=== PATIENT | male | born 1940 | race Caucasian/White ===

== ENCOUNTER → 2016-06-11 | Outpatient (CLI) | payer MEDICARE, OTHER ==
[~2016-06-11] MED LIST: AFRIN PUMPMIST15 ML NS; ALBUTEROL2.5 MG/3 M IH; ALEVE220 MG PO; ARTIFICIAL TEARS OP; ASPIRIN E.C. 8181 MG PO; ATROVENT I0.2 MG/1 M IH; BENADRYL25 MG PO; BISACODYL RC; CARDI-OMEGA1000 MG PO; CEPACOL SORE TH MM; CEPHALEXIN250 M1 PO; CEPHALEXIN500 M1 PO; CLARITIN LIQUI-10 MG PO; CLINDAMYCIN300 MG PO; COLACE 100100 MG/CAP PO; COUMADIN 22.5 MG/TAB PO; COUMADIN 5MG5 MG/TAB PO; COUMADIN5 M1 IV; COUMADIN5 MG PO; COUMADIN7.5 MG PO; DELSYM30 MG/5 ML PO; DHA PO; DIGESTIVE ENZYM1 TAB PO; DIGOX0.125 MG PO; DOCUSATE SODIU100 M2 PO; DULCOLAX S10 MG/SUPP REC; ENEMA 135 ML135 M1 RC; FLOMAX0.4 MG PO; FLONASE NASAL S16 GM NS; FUROSEMIDE PO; GENTLELAX510 GM PO; HYDROCODONE/APAP PO; INDERAL LA 60MG60 M1 PO; IPRATROPIUM BROM3 M1 IH; Inderal LA PO; K-DUR 10 MEQ T10 MEQ PO; LASIX 40MG TABL40 MG PO; LORAZEPAM PO; LORTAB ELIX0.5 MG/ML PO; METAMUCIL3.4 GM/Do1 PO; MILK OF MAG30 ML/CUP PO; MIRALAX PA17 GM/Dose PO; MULTI VITAMINS1 TAB PO; MYLICON PO; NAMENDA5 MG PO; NORITATE1% TP; PENLAC; PRILOSEC 20MG20 MG PO; PROBIOTIC FORMU1 CAP PO; PROBIOTIC1 EAC1 PO; PULMICORT0.5 MG/2 M IH; Patient's Own Medication PO; SELSUN BLUE325 ML TOP; SENOKOT-S TAB1 UDTAB PO; SENOKOT8.6 MG; SENOKOT8.6 MG PO; SINEMET 25-1001 TAB PO; SKELAXIN400 MG PO; ST. JOSEPH81 M2 PO; TESSALON P100 MG/CAP PO; TESSALON PERLE100 M1 PO; TESSALON PERLE200 MG PO; THERAGRAN TAB1 UDTAB PO; TOPROL XL 50MG50 MG PO; TOPROL XL25 MG PO; TRIAMCINOLONE A15 GM TP; TYLENOL 325MG325 MG PO; TYLENOL 500MG500 MG PO; VIBRAMYCIN100 MG PO; VICKS VAPORUB 41 OIN TP; VITAMIN C PURE500 MG PO; VITAMIN D 1001000 IU PO; VITAMIN D NATU400 IU PO; VITAMIN D31000 I1 PO; WARFARIN SOD5 MG PO; ZANTAC 7575 MG PO; ZINC50 M1 PO; ZITHROMAX500 M2 PO; ZOFRAN8 MG PO; ZYRTEC10 MG PO; [UNRECOGNIZED DRUG - OTHER] PO
== END ==
LOC: RAD 15:02
DX: R05 Cough (principal)

== ENCOUNTER → 2016-06-13 | Outpatient (CLI) | payer MEDICARE, OTHER | LOC: LAB 07:30 | DX: Z51.81 Encounter for therapeutic drug level monitoring (principal); Z79.01 Long term (current) use of anticoagulants; I63.40 Cerebral infarction due to embolism of unspecified cerebral artery ==

== ENCOUNTER → 2016-06-14 | Outpatient (CLI) | payer MEDICARE, OTHER | LOC: LAB 13:30 | DX: I51.7 Cardiomegaly (principal) ==

== ENCOUNTER → 2016-06-17 | Outpatient (CLI) | payer MEDICARE, OTHER | LOC: RAD 16:29 | DX: I11.0 Hypertensive heart disease with heart failure (principal); I48.2 Chronic atrial fibrillation; R05 Cough ==

== ENCOUNTER → 2016-07-11 | Outpatient (CLI) | payer MEDICARE, OTHER | LOC: LAB 06:05 | DX: Z79.01 Long term (current) use of anticoagulants (principal) ==

== ENCOUNTER → 2016-08-08 | Outpatient (CLI) | payer MEDICARE, OTHER | LOC: LAB 05:30 | DX: Z51.81 Encounter for therapeutic drug level monitoring (principal); Z79.01 Long term (current) use of anticoagulants; I48.91 Unspecified atrial fibrillation ==

== ENCOUNTER → 2016-09-12 | Outpatient (CLI) | payer MEDICARE, OTHER | LOC: LAB 05:26 | DX: Z51.81 Encounter for therapeutic drug level monitoring (principal); Z79.01 Long term (current) use of anticoagulants ==

== ENCOUNTER → 2016-10-12 | Outpatient (CLI) | payer MEDICARE, OTHER ==
[2016-02-27 11:26] VITALS: BP 102/65
== END ==
LOC: LAB 07:50
DX: Z79.01 Long term (current) use of anticoagulants (principal); I69.351 Hemiplegia and hemiparesis following cerebral infarction affecting right dominant side

== ENCOUNTER → 2016-10-25 | Outpatient (CLI) | payer MEDICARE, OTHER ==
[2016-02-27 11:26] VITALS: BP 102/65
== END ==
LOC: LAB 06:40
DX: Z51.81 Encounter for therapeutic drug level monitoring (principal); Z79.01 Long term (current) use of anticoagulants; I69.351 Hemiplegia and hemiparesis following cerebral infarction affecting right dominant side

== ENCOUNTER → 2016-11-11 | Outpatient (CLI) | payer MEDICARE, OTHER ==
[2016-02-27 11:26] VITALS: BP 102/65
== END ==
LOC: LAB 06:58
DX: Z51.81 Encounter for therapeutic drug level monitoring (principal); Z79.01 Long term (current) use of anticoagulants

== ENCOUNTER 2016-11-26 13:22 | Emergency (ER) | payer MEDICARE, OTHER ==
[~2016-11-26] VITALS: Wt 118.7 kg
[~2016-11-26 13:22] MED LIST changes: -AFRIN PUMPMIST15 ML NS; -CEPACOL SORE TH MM; -DULCOLAX S10 MG/SUPP REC; -GENTLELAX510 GM PO; -PROBIOTIC1 EAC1 PO; -SELSUN BLUE325 ML TOP; -ZITHROMAX500 M2 PO
[2016-11-26] MEDS ORDERED: AFRIN PUMPMIST15 ML NS (14:12)
[2016-11-26] MEDS ORDERED: ALBUTEROL2.5 MG/3 M IH (14:13)
[2016-11-26] MEDS ORDERED: CEPACOL SORE TH MM (14:15)
[2016-11-26] MEDS ORDERED: CLARITIN LIQUI-10 MG PO (14:15)
[2016-11-26] MEDS ORDERED: COUMADIN 5MG5 MG/TAB PO ×2 (14:16→14:17)
[2016-11-26] MEDS ORDERED: DULCOLAX S10 MG/SUPP REC (14:18)
[2016-11-26] MEDS ORDERED: GENTLELAX510 GM PO (14:20)
[2016-11-26] MEDS ORDERED: PROBIOTIC1 EAC1 PO (14:20)
[2016-11-26] MEDS ORDERED: SELSUN BLUE325 ML TOP (14:23)
[2016-11-26] MEDS ORDERED: ZITHROMAX500 M2 PO (15:54)
[2016-11-26 16:21] VITALS: BP 141/87
== END 2016-11-26 16:36 | disposition home or self-care (01) ==
LOC: ED 13:22
DX: J40 Bronchitis, not specified as acute or chronic (principal); J44.9 Chronic obstructive pulmonary disease, unspecified; R53.81 Other malaise; R50.9 Fever, unspecified; I48.91 Unspecified atrial fibrillation; Z79.01 Long term (current) use of anticoagulants; I11.0 Hypertensive heart disease with heart failure; I50.9 Heart failure, unspecified; Z86.73 Personal history of transient ischemic attack (TIA), and cerebral infarction without residual deficits; G20 Parkinson's disease; F03.90 Unspecified dementia, unspecified severity, without behavioral disturbance, psychotic disturbance, mood disturbance, and anxiety; G91.2 (Idiopathic) normal pressure hydrocephalus; Z98.2 Presence of cerebrospinal fluid drainage device
CPT/HCPCS: J7120

== ENCOUNTER → 2016-12-12 | Outpatient (CLI) | payer MEDICARE, OTHER ==
[2016-11-26 16:21] VITALS: BP 141/87
[~2016-12-12] MED LIST changes: +AFRIN PUMPMIST15 ML NS; +CEPACOL SORE TH MM; +DULCOLAX S10 MG/SUPP REC; +GENTLELAX510 GM PO; +PROBIOTIC1 EAC1 PO; +SELSUN BLUE325 ML TOP; +ZITHROMAX500 M2 PO
== END ==
LOC: LAB 10:05
DX: Z51.81 Encounter for therapeutic drug level monitoring (principal); I48.91 Unspecified atrial fibrillation; Z79.01 Long term (current) use of anticoagulants

== ENCOUNTER → 2017-01-09 | Outpatient (CLI) | payer MEDICARE, OTHER | LOC: LAB 06:00 | DX: Z51.81 Encounter for therapeutic drug level monitoring (principal); Z79.01 Long term (current) use of anticoagulants; I48.91 Unspecified atrial fibrillation ==

== ENCOUNTER → 2017-01-21 | Outpatient (CLI) | payer MEDICARE, OTHER | LOC: LAB 05:45 | DX: I50.9 Heart failure, unspecified (principal); I48.91 Unspecified atrial fibrillation ==

== ENCOUNTER → 2017-02-11 | Outpatient (CLI) | payer MEDICARE, OTHER | LOC: LAB 05:40 | DX: I48.91 Unspecified atrial fibrillation (principal); Z79.01 Long term (current) use of anticoagulants ==

== ENCOUNTER → 2017-02-25 | Outpatient (CLI) | payer MEDICARE, OTHER | LOC: LAB 05:00 | DX: I48.91 Unspecified atrial fibrillation (principal); Z79.01 Long term (current) use of anticoagulants ==

== ENCOUNTER → 2017-03-10 | Outpatient (CLI) | payer MEDICARE, OTHER | LOC: LAB 06:15 | DX: I48.91 Unspecified atrial fibrillation (principal) ==

== ENCOUNTER → 2017-03-14 | Outpatient (CLI) | payer MEDICARE, OTHER | LOC: LAB 06:10 | DX: Z79.01 Long term (current) use of anticoagulants (principal); Z86.718 Personal history of other venous thrombosis and embolism ==

== ENCOUNTER → 2017-04-11 | Outpatient (CLI) | payer MEDICARE, OTHER ==
[2017-04-11 06:56] LABS: PROTHROMBIN TIME 18.9 SECONDS (9.0-12.0)
== END ==
LOC: LAB 05:35
PROVIDERS: Family Medicine
DX: Z51.81 Encounter for therapeutic drug level monitoring (principal); Z79.01 Long term (current) use of anticoagulants; I48.91 Unspecified atrial fibrillation

== ENCOUNTER → 2017-04-24 | Outpatient (CLI) | payer MEDICARE, OTHER ==
[2017-04-24 20:26] LABS: HEMATOCRIT 43.4 % (42.0-52.0); HEMOGLOBIN 14.6 g/dL (13.5-18.0); MEAN PLATELET VOLUME 10.9 fl (7.4-10.4); RED BLOOD COUNT 4.7 M/mm3 (4.20-5.60); RED CELL DISTRIBUTION WIDTH 13.1 % (11.5-14.5); WHITE BLOOD COUNT 10.3 K/mm3 (4.8-10.8)
== END ==
LOC: LAB 19:10
PROVIDERS: Family Medicine
DX: J06.9 Acute upper respiratory infection, unspecified (principal)

== ENCOUNTER → 2017-04-25 | Outpatient (CLI) | payer MEDICARE, OTHER | LOC: LAB 06:25 | PROVIDERS: Family Medicine | DX: Z79.01 Long term (current) use of anticoagulants (principal) ==

== ENCOUNTER → 2017-04-25 | Outpatient (CLI) | payer MEDICARE, OTHER | LOC: RAD 09:30 | DX: R05 Cough (principal) ==

== ENCOUNTER → 2017-05-02 | Outpatient (CLI) | payer MEDICARE, OTHER ==
[2017-05-02 07:07] LABS: PROTHROMBIN TIME 23.3 SECONDS (9.0-12.0)
== END ==
LOC: LAB 06:23
PROVIDERS: Family Medicine
DX: I48.91 Unspecified atrial fibrillation (principal); Z79.01 Long term (current) use of anticoagulants

== ENCOUNTER → 2017-05-05 | Outpatient (CLI) | payer MEDICARE, OTHER ==
[2017-05-05 07:44] LABS: PROTHROMBIN TIME 25.5 SECONDS (9.0-12.0)
== END ==
LOC: LAB 06:28
PROVIDERS: Family Medicine
DX: I48.91 Unspecified atrial fibrillation (principal); Z79.01 Long term (current) use of anticoagulants

== ENCOUNTER → 2017-05-12 | Outpatient (CLI) | payer MEDICARE, OTHER ==
[2017-05-12 07:29] LABS: PROTHROMBIN TIME 22.2 SECONDS (9.0-12.0)
== END ==
LOC: LAB 06:25
PROVIDERS: Family Medicine
DX: I48.91 Unspecified atrial fibrillation (principal); Z79.01 Long term (current) use of anticoagulants

== ENCOUNTER → 2017-06-10 | Outpatient (CLI) | payer MEDICARE, OTHER ==
[2017-06-10 06:47] LABS: PROTHROMBIN TIME 18.9 SECONDS (9.0-12.0)
== END ==
LOC: LAB 05:55
PROVIDERS: Family Medicine
DX: I48.91 Unspecified atrial fibrillation (principal)

== ENCOUNTER → 2017-06-17 | Outpatient (CLI) | payer MEDICARE, OTHER ==
[2017-06-17 07:23] LABS: PROTHROMBIN TIME 23.5 SECONDS (9.0-12.0)
== END ==
LOC: LAB 06:42
PROVIDERS: Family Medicine
DX: Z79.01 Long term (current) use of anticoagulants (principal)

== ENCOUNTER → 2017-06-30 | Outpatient (CLI) | payer MEDICARE, OTHER ==
[2017-06-30 07:18] LABS: PROTHROMBIN TIME 24.4 SECONDS (9.0-12.0)
== END ==
LOC: LAB 06:25
PROVIDERS: Family Medicine
DX: I48.91 Unspecified atrial fibrillation (principal); Z79.01 Long term (current) use of anticoagulants

== ENCOUNTER → 2017-07-08 | Outpatient (CLI) | payer MEDICARE, OTHER ==
[~2017-07-08] MED LIST changes: +GUAIFENESIN-CO473 ML PO; +PROBIOTIC1 EAC3 PO; +TAMIFLU 75MG75 MG PO
[2017-07-08 07:40] LABS: ALBUMIN 3.7 g/dL (3.5-5.0); BUN/CREATININE RATIO 21.2 (6.0-26.0); CALCIUM 8.7 mg/dL (8.4-10.2); POTASSIUM 4.9 mmol/L (3.6-5.0); TOTAL BILIRUBIN 0.8 mg/dL (0.2-1.3)
== END ==
LOC: LAB 06:45
PROVIDERS: Family Medicine
DX: R63.4 Abnormal weight loss (principal)

== ENCOUNTER 2017-07-14 15:33 | Emergency (ER) | payer MEDICARE, OTHER ==
[~2017-07-14 15:33] MED LIST changes: -GUAIFENESIN-CO473 ML PO; -PROBIOTIC1 EAC3 PO; -TAMIFLU 75MG75 MG PO
[2017-07-14] MEDS ORDERED: GUAIFENESIN-CO473 ML PO (16:01)
[2017-07-14] MEDS ORDERED: PROBIOTIC1 EAC3 PO (16:05)
[2017-07-14 17:17] LABS: HEMATOCRIT 43.9 % (42.0-52.0); HEMOGLOBIN 14.4 g/dL (13.5-18.0); MEAN CELL VOLUME 94 fl (78-100); MEAN CORPUSCULAR HEMOGLOBIN 31 pg (27-31); MEAN CORPUSCULAR HGB CONC 33 g/dL (33-37); MEAN PLATELET VOLUME 11.1 fl (7.4-10.4); PLATELET COUNT 162 K/mm3 (130-400); RED BLOOD COUNT 4.66 M/mm3 (4.20-5.60); RED CELL DISTRIBUTION WIDTH 13.9 % (11.5-14.5)
[2017-07-14 17:34] LABS: ALBUMIN 3.7 g/dL (3.5-5.0); BUN/CREATININE RATIO 20.5 (6.0-26.0); CALCIUM 8.3 mg/dL (8.4-10.2); POTASSIUM 4.2 mmol/L (3.6-5.0); TOTAL BILIRUBIN 0.8 mg/dL (0.2-1.3); TOTAL PROTEIN 7.2 g/dL (6.3-8.2)
[2017-07-14 17:45] LABS: TROPONIN-I < 0.03 ng/mL (0.00-0.06)
[2017-07-14 17:52] LABS: PROTHROMBIN TIME 17.6 SECONDS (9.0-12.0)
[2017-07-14 18:22] LABS: URINE APPEARANCE HAZY; URINE COLOR YELLOW
[2017-07-14 18:23] LABS: URINE BILIRUBIN NEGATIVE (NEGATIVE); URINE BLOOD NEGATIVE (NEGATIVE); URINE GLUCOSE NEGATIVE (NEGATIVE); URINE KETONE NEGATIVE (NEGATIVE); URINE LEUKOCYTE ESTERASE NEGATIVE (NEGATIVE); URINE NITRATE NEGATIVE (NEGATIVE); URINE PROTEIN(semi-quant) TRACE mg/dL (NEGATIVE); URINE UROBILINOGEN NORMAL (NORMAL)
[2017-07-14 18:24] LABS: URINE MUCUS PRESENT (NOT PRESENT)
[2017-07-14] MEDS ORDERED: TAMIFLU 75MG75 MG PO (19:18)
[2017-07-14 19:43] LABS: NEUTROPHILS 68 % (42-75)
[2017-07-14 19:44] LABS: LYMPHOCYTE 24 % (20-51); MONOCYTE 8 % (3-10)
[2017-07-14 21:20] VITALS: BP 114/54
== END 2017-07-14 21:20 | disposition home or self-care (01) ==
LOC: ED 15:33
PROVIDERS: Nurse Practitioner
DX: J10.1 Influenza due to other identified influenza virus with other respiratory manifestations (principal); I48.91 Unspecified atrial fibrillation; I69.951 Hemiplegia and hemiparesis following unspecified cerebrovascular disease affecting right dominant side; Z98.2 Presence of cerebrospinal fluid drainage device; I25.10 Atherosclerotic heart disease of native coronary artery without angina pectoris; K21.9 Gastro-esophageal reflux disease without esophagitis; G47.30 Sleep apnea, unspecified; N40.0 Benign prostatic hyperplasia without lower urinary tract symptoms; Z85.46 Personal history of malignant neoplasm of prostate; G20 Parkinson's disease; Z79.01 Long term (current) use of anticoagulants; Z79.82 Long term (current) use of aspirin; Z88.8 Allergy status to other drugs, medicaments and biological substances; R41.0 Disorientation, unspecified

== ENCOUNTER → 2017-07-28 | Outpatient (CLI) | payer MEDICARE, OTHER ==
[2017-07-14 21:20] VITALS: BP 114/54
[~2017-07-28] MED LIST changes: +GUAIFENESIN-CO473 ML PO; +PROBIOTIC1 EAC3 PO; +TAMIFLU 75MG75 MG PO
== END ==
LOC: LAB 06:32
PROVIDERS: Family Medicine
DX: I48.91 Unspecified atrial fibrillation (principal); Z79.01 Long term (current) use of anticoagulants

== ENCOUNTER → 2017-08-11 | Outpatient (CLI) | payer MEDICARE, OTHER ==
[2017-07-14 21:20] VITALS: BP 114/54
[2017-08-11 08:18] LABS: PROTHROMBIN TIME 27.6 SECONDS (9.0-12.0)
== END ==
LOC: LAB 06:50
PROVIDERS: Family Medicine
DX: I63.40 Cerebral infarction due to embolism of unspecified cerebral artery (principal); Z79.01 Long term (current) use of anticoagulants

== ENCOUNTER → 2017-09-11 | Outpatient (CLI) | payer MEDICARE, OTHER | LOC: LAB 06:02 | PROVIDERS: Family Medicine | DX: Z79.01 Long term (current) use of anticoagulants (principal); I63.9 Cerebral infarction, unspecified ==

== ENCOUNTER → 2017-10-13 | Outpatient (CLI) | payer MEDICARE, OTHER ==
[2017-10-13 06:57] LABS: PROTHROMBIN TIME 11.5 SECONDS (9.0-12.0)
[2017-10-13 17:51] LABS: PROTHROMBIN TIME 11.6 SECONDS (9.0-12.0)
== END ==
LOC: LAB 06:23
PROVIDERS: Family Medicine
DX: Z79.01 Long term (current) use of anticoagulants (principal)

== ENCOUNTER 2017-10-18 16:39 | Emergency (ER) | payer MEDICARE, OTHER ==
[2017-10-18 17:16] LABS: EOS # 0.5 (0.04-0.40); HEMATOCRIT 43.8 % (42.0-52.0); HEMOGLOBIN 14.7 g/dL (13.5-18.0); LYMPH# 1.9 (1.50-4.00); MEAN CELL VOLUME 92 fl (78-100); MEAN CORPUSCULAR HEMOGLOBIN 31 pg (27-31); MEAN CORPUSCULAR HGB CONC 34 g/dL (33-37); MEAN PLATELET VOLUME 10.7 fl (7.4-10.4); MONO # 0.8 (0.20-0.80); NEU # 5.6 (1.40-6.50); PLATELET COUNT 202 K/mm3 (130-400); RED BLOOD COUNT 4.74 M/mm3 (4.20-5.60); RED CELL DISTRIBUTION WIDTH 13.7 % (11.5-14.5); WHITE BLOOD COUNT 8.9 K/mm3 (4.8-10.8)
[2017-10-18] MEDS ORDERED: FLUTICASON0.05 MG/AC NS (17:16)
[2017-10-18] MEDS ORDERED: MULTIPLE VITAMI1 TA5 PO (17:17)
[2017-10-18] MEDS ORDERED: WARFARIN SODIU2.5 MG PO (17:18)
[2017-10-18] MEDS ORDERED: WARFARIN SOD5 MG PO (17:19)
[2017-10-18 17:23] LABS: EOS % 5.3 % (0.0-4.0)
[2017-10-18 17:27] LABS: BUN/CREATININE RATIO 19.2 (6.0-26.0); CALCIUM 8.7 mg/dL (8.4-10.2); POTASSIUM 4.4 mmol/L (3.6-5.0); TOTAL BILIRUBIN 0.7 mg/dL (0.2-1.3); TOTAL PROTEIN 7.9 g/dL (6.3-8.2)
[2017-10-18 17:33] LABS: PROTHROMBIN TIME 13.2 SECONDS (9.0-12.0)
[2017-10-18] MEDS ORDERED: NITROGLYCERIN0.4 M1 SL (20:44)
[2017-10-18 21:08] VITALS: BP 140/84
== END 2017-10-18 21:08 | disposition home or self-care (01) ==
LOC: ED 16:39
PROVIDERS: Family Medicine
DX: R07.9 Chest pain, unspecified (principal); I10 Essential (primary) hypertension; I48.91 Unspecified atrial fibrillation; I69.854 Hemiplegia and hemiparesis following other cerebrovascular disease affecting left non-dominant side; G91.9 Hydrocephalus, unspecified; Z98.2 Presence of cerebrospinal fluid drainage device; G20 Parkinson's disease; F02.80 Dementia in other diseases classified elsewhere, unspecified severity, without behavioral disturbance, psychotic disturbance, mood disturbance, and anxiety; Z79.82 Long term (current) use of aspirin; Z79.01 Long term (current) use of anticoagulants
CPT/HCPCS: J0360

== ENCOUNTER → 2017-10-20 | Outpatient (CLI) | payer MEDICARE, OTHER ==
[2017-10-18 21:08] VITALS: BP 140/84
[~2017-10-20] MED LIST changes: +FLUTICASON0.05 MG/AC NS; +MULTIPLE VITAMI1 TA5 PO; +NITROGLYCERIN0.4 M1 SL; +WARFARIN SODIU2.5 MG PO
[2017-10-20 06:50] LABS: PROTHROMBIN TIME 12.1 SECONDS (9.0-12.0)
== END ==
LOC: LAB 06:20
PROVIDERS: Family Medicine
DX: Z79.01 Long term (current) use of anticoagulants (principal)

== ENCOUNTER → 2017-10-24 | Outpatient (CLI) | payer MEDICARE, OTHER ==
[2017-10-18 21:08] VITALS: BP 140/84
== END ==
LOC: LAB 05:13
PROVIDERS: Family Medicine
DX: I63.40 Cerebral infarction due to embolism of unspecified cerebral artery (principal); Z79.01 Long term (current) use of anticoagulants; Z86.73 Personal history of transient ischemic attack (TIA), and cerebral infarction without residual deficits

== ENCOUNTER → 2017-10-30 | Outpatient (CLI) | payer MEDICARE, OTHER ==
[2017-10-18 21:08] VITALS: BP 140/84
[2017-10-30 06:49] LABS: PROTHROMBIN TIME 19.6 SECONDS (9.0-12.0)
== END ==
LOC: LAB 05:30
PROVIDERS: Family Medicine
DX: Z51.81 Encounter for therapeutic drug level monitoring (principal); Z79.01 Long term (current) use of anticoagulants; I50.9 Heart failure, unspecified

== ENCOUNTER → 2017-11-06 | Outpatient (CLI) | payer MEDICARE, OTHER ==
[2017-10-18 21:08] VITALS: BP 140/84
[2017-11-06 06:43] LABS: PROTHROMBIN TIME 17.1 SECONDS (9.0-12.0)
== END ==
LOC: LAB 05:40
PROVIDERS: Family Medicine
DX: Z51.81 Encounter for therapeutic drug level monitoring (principal); Z79.01 Long term (current) use of anticoagulants; I48.91 Unspecified atrial fibrillation

== ENCOUNTER → 2017-11-17 | Outpatient (CLI) | payer MEDICARE, OTHER ==
[2017-10-18 21:08] VITALS: BP 140/84
[2017-11-17 07:18] LABS: PROTHROMBIN TIME 20.1 SECONDS (9.0-12.0)
== END ==
LOC: LAB 06:35
PROVIDERS: Family Medicine
DX: Z51.81 Encounter for therapeutic drug level monitoring (principal); Z79.01 Long term (current) use of anticoagulants

== ENCOUNTER → 2017-12-15 | Outpatient (CLI) | payer MEDICARE, OTHER | LOC: LAB 14:15 | PROVIDERS: Family Medicine | DX: Z51.81 Encounter for therapeutic drug level monitoring (principal); Z79.01 Long term (current) use of anticoagulants ==

== ENCOUNTER → 2018-01-13 | Outpatient (CLI) | payer MEDICARE, OTHER ==
[2018-01-13 06:30] LABS: PROTHROMBIN TIME 26.9 SECONDS (9.0-12.0)
== END ==
LOC: LAB 05:25
PROVIDERS: Family Medicine
DX: Z51.81 Encounter for therapeutic drug level monitoring (principal); Z79.01 Long term (current) use of anticoagulants; I48.91 Unspecified atrial fibrillation

== ENCOUNTER → 2018-02-19 | Outpatient (CLI) | payer MEDICARE, OTHER ==
[2018-02-19 18:08] LABS: PROTHROMBIN TIME 14.9 SECONDS (9.0-12.0)
== END ==
LOC: LAB 17:03
PROVIDERS: Family Medicine
DX: Z51.81 Encounter for therapeutic drug level monitoring (principal); Z79.01 Long term (current) use of anticoagulants; Z86.79 Personal history of other diseases of the circulatory system

== ENCOUNTER → 2018-02-26 | Outpatient (CLI) | payer MEDICARE, OTHER ==
[2018-02-26 05:52] LABS: PROTHROMBIN TIME 21.5 SECONDS (9.0-12.0)
== END ==
LOC: LAB 05:25
PROVIDERS: Internal Medicine
DX: Z51.81 Encounter for therapeutic drug level monitoring (principal); Z79.01 Long term (current) use of anticoagulants; I63.40 Cerebral infarction due to embolism of unspecified cerebral artery

== ENCOUNTER → 2018-03-26 | Outpatient (CLI) | payer MEDICARE, OTHER | LOC: LAB 05:35 | PROVIDERS: Family Medicine | DX: Z51.81 Encounter for therapeutic drug level monitoring (principal); Z79.01 Long term (current) use of anticoagulants; I63.40 Cerebral infarction due to embolism of unspecified cerebral artery ==

== ENCOUNTER → 2018-04-23 | Outpatient (CLI) | payer MEDICARE, OTHER | LOC: LAB 05:25 | PROVIDERS: Family Medicine | DX: Z51.81 Encounter for therapeutic drug level monitoring (principal); Z79.01 Long term (current) use of anticoagulants; I63.40 Cerebral infarction due to embolism of unspecified cerebral artery ==

== ENCOUNTER → 2018-05-22 | Outpatient (CLI) | payer MEDICARE, OTHER ==
[2018-05-22 09:35] LABS: PROTHROMBIN TIME 21.8 SECONDS (9.0-12.0)
== END ==
LOC: LAB 07:10
PROVIDERS: Family Medicine
DX: I63.9 Cerebral infarction, unspecified (principal)

== ENCOUNTER → 2018-06-01 | Outpatient (CLI) | payer MEDICARE, OTHER ==
[2018-06-01 08:00] LABS: PROTHROMBIN TIME 20.9 SECONDS (9.0-12.0)
== END ==
LOC: LAB 07:11
PROVIDERS: Family Medicine
DX: Z51.81 Encounter for therapeutic drug level monitoring (principal); Z79.01 Long term (current) use of anticoagulants

== ENCOUNTER → 2018-06-16 | Outpatient (CLI) | payer MEDICARE, OTHER | LOC: RAD 16:47 | DX: R05 Cough (principal); R50.9 Fever, unspecified; Z98.2 Presence of cerebrospinal fluid drainage device ==

== ENCOUNTER → 2018-06-18 | Outpatient (CLI) | payer MEDICARE, OTHER ==
[2018-06-18 07:57] LABS: EOS # 0.4 (0.04-0.40); EOS % 4.4 % (0.0-4.0); HEMOGLOBIN 13.1 g/dL (13.5-18.0); LYMPH# 1.7 (1.50-4.00); MEAN CELL VOLUME 94 fl (78-100); MEAN CORPUSCULAR HEMOGLOBIN 32 pg (27-31); MEAN CORPUSCULAR HGB CONC 34 g/dL (33-37); MEAN PLATELET VOLUME 11.4 fl (7.4-10.4); MONO # 0.8 (0.20-0.80); NEU # 5.7 (1.40-6.50); PLATELET COUNT 160 K/mm3 (130-400); RED BLOOD COUNT 4.15 M/mm3 (4.20-5.60); RED CELL DISTRIBUTION WIDTH 13.6 % (11.5-14.5); WHITE BLOOD COUNT 8.6 K/mm3 (4.8-10.8)
[2018-06-18 08:58] LABS: CALCIUM 8.6 mg/dL (8.4-10.2); POTASSIUM 4.5 mmol/L (3.6-5.0)
== END ==
LOC: LAB 05:40
PROVIDERS: Family Medicine
DX: R05 Cough (principal); R50.9 Fever, unspecified

== ENCOUNTER → 2018-06-19 | Outpatient (CLI) | payer MEDICARE, OTHER ==
[2018-06-19 08:35] LABS: CALCIUM 8.9 mg/dL (8.4-10.2); POTASSIUM 4.3 mmol/L (3.6-5.0)
[2018-06-19 08:52] LABS: PROTHROMBIN TIME 19.8 SECONDS (9.0-12.0)
== END ==
LOC: LAB 07:20
PROVIDERS: Family Medicine
DX: I50.9 Heart failure, unspecified (principal); I63.40 Cerebral infarction due to embolism of unspecified cerebral artery; Z79.01 Long term (current) use of anticoagulants

== ENCOUNTER → 2018-06-23 | Outpatient (CLI) | payer MEDICARE, OTHER ==
[2018-06-23 06:42] LABS: CALCIUM 8.4 mg/dL (8.4-10.2); POTASSIUM 4.7 mmol/L (3.6-5.0)
== END ==
LOC: LAB 05:40
PROVIDERS: Family Medicine
DX: I50.9 Heart failure, unspecified (principal)

== ENCOUNTER → 2018-06-25 | Outpatient (CLI) | payer MEDICARE, OTHER | LOC: VAS 15:18 | DX: I09.81 Rheumatic heart failure (principal); I50.22 Chronic systolic (congestive) heart failure ==

== ENCOUNTER → 2018-06-28 | Outpatient (CLI) | payer MEDICARE, OTHER ==
[2018-06-28 10:35] LABS: PROTHROMBIN TIME 22.4 SECONDS (9.0-12.0)
== END ==
LOC: LAB 09:40
PROVIDERS: Family Medicine
DX: Z51.81 Encounter for therapeutic drug level monitoring (principal); Z79.01 Long term (current) use of anticoagulants

== ENCOUNTER → 2018-07-30 | Outpatient (CLI) | payer MEDICARE, OTHER ==
[2018-07-30 07:52] LABS: PROTHROMBIN TIME 23.8 SECONDS (9.0-12.0)
== END ==
LOC: LAB 07:40
PROVIDERS: Family Medicine
DX: Z51.81 Encounter for therapeutic drug level monitoring (principal); Z79.01 Long term (current) use of anticoagulants

== ENCOUNTER → 2018-08-27 | Outpatient (CLI) | payer MEDICARE, OTHER ==
[2018-08-27 05:40] LABS: PROTHROMBIN TIME 20.9 SECONDS (9.0-12.0)
== END ==
LOC: LAB 04:57
PROVIDERS: Family Medicine
DX: I48.91 Unspecified atrial fibrillation (principal); Z79.01 Long term (current) use of anticoagulants

== ENCOUNTER → 2018-09-24 | Outpatient (CLI) | payer MEDICARE, OTHER ==
[2018-09-24 08:46] LABS: PROTHROMBIN TIME 21.9 SECONDS (9.0-12.0)
== END ==
LOC: LAB 06:30
PROVIDERS: Family Medicine
DX: Z79.01 Long term (current) use of anticoagulants (principal)

== ENCOUNTER → 2018-10-22 | Outpatient (CLI) | payer MEDICARE, OTHER ==
[2018-10-22 06:39] LABS: PROTHROMBIN TIME 24.4 SECONDS (9.0-12.0)
== END ==
LOC: LAB 05:25
PROVIDERS: Family Medicine
DX: I48.91 Unspecified atrial fibrillation (principal); Z79.01 Long term (current) use of anticoagulants

== ENCOUNTER → 2018-11-19 | Outpatient (CLI) | payer MEDICARE, OTHER ==
[2018-11-19 08:47] LABS: PROTHROMBIN TIME 18.7 SECONDS (9.0-12.0)
== END ==
LOC: LAB 07:40
PROVIDERS: Family Medicine
DX: I48.91 Unspecified atrial fibrillation (principal)

== ENCOUNTER → 2018-12-16 | Outpatient (CLI) | payer MEDICARE, OTHER ==
[2018-12-16 07:49] LABS: PROTHROMBIN TIME 16.8 SECONDS (9.0-12.0)
== END ==
LOC: LAB 06:28
PROVIDERS: Family Medicine
DX: I48.91 Unspecified atrial fibrillation (principal); Z79.01 Long term (current) use of anticoagulants

== ENCOUNTER → 2018-12-30 | Outpatient (CLI) | payer MEDICARE, OTHER ==
[2018-12-30 06:49] LABS: PROTHROMBIN TIME 28.8 SECONDS (9.0-12.0)
== END ==
LOC: LAB 06:19
PROVIDERS: Family Medicine
DX: Z79.01 Long term (current) use of anticoagulants (principal); Z86.711 Personal history of pulmonary embolism

== ENCOUNTER → 2019-01-27 | Outpatient (CLI) | payer MEDICARE, OTHER ==
[2019-01-27 07:21] LABS: PROTHROMBIN TIME 32.9 SECONDS (9.0-12.0)
== END ==
LOC: LAB 06:30
PROVIDERS: Family Medicine
DX: Z79.01 Long term (current) use of anticoagulants (principal); Z86.73 Personal history of transient ischemic attack (TIA), and cerebral infarction without residual deficits

== ENCOUNTER → 2019-02-24 | Outpatient (CLI) | payer MEDICARE, OTHER | LOC: LAB 05:55 | PROVIDERS: Family Medicine | DX: Z51.81 Encounter for therapeutic drug level monitoring (principal); Z79.01 Long term (current) use of anticoagulants ==

== ENCOUNTER → 2019-03-11 | Outpatient (CLI) | payer MEDICARE, OTHER ==
[2019-03-11 06:13] LABS: PROTHROMBIN TIME 30.4 SECONDS (9.0-12.0)
== END ==
LOC: LAB 05:57
PROVIDERS: Family Medicine
DX: I50.9 Heart failure, unspecified (principal); I48.91 Unspecified atrial fibrillation; Z79.01 Long term (current) use of anticoagulants

== ENCOUNTER → 2019-04-07 | Outpatient (CLI) | payer MEDICARE, OTHER ==
[2019-04-07 16:15] LABS: PROTHROMBIN TIME 19.2 SECONDS (9.0-12.0)
== END ==
LOC: LAB 15:58
PROVIDERS: Family Medicine
DX: I63.40 Cerebral infarction due to embolism of unspecified cerebral artery (principal); Z79.01 Long term (current) use of anticoagulants

== ENCOUNTER → 2019-04-12 | Outpatient (CLI) | payer MEDICARE, OTHER ==
[2019-04-12 08:46] LABS: PROTHROMBIN TIME 21.8 SECONDS (9.0-12.0)
== END ==
LOC: LAB 07:25
PROVIDERS: Family Medicine
DX: Z51.81 Encounter for therapeutic drug level monitoring (principal); Z79.01 Long term (current) use of anticoagulants

== ENCOUNTER → 2019-04-15 | Outpatient (CLI) | payer MEDICARE, OTHER | LOC: LAB 13:25 | PROVIDERS: Family Medicine | DX: I48.91 Unspecified atrial fibrillation (principal) ==

== ENCOUNTER → 2019-05-11 | Outpatient (CLI) | payer MEDICARE, OTHER ==
[2019-05-11 10:17] LABS: PROTHROMBIN TIME 26.8 SECONDS (9.0-12.0)
== END ==
LOC: LAB 09:26
PROVIDERS: Family Medicine
DX: Z51.81 Encounter for therapeutic drug level monitoring (principal); Z79.01 Long term (current) use of anticoagulants

== ENCOUNTER → 2019-06-11 | Outpatient (CLI) | payer MEDICARE, OTHER ==
[2019-06-11 07:44] LABS: PROTHROMBIN TIME 27.3 SECONDS (9.0-12.0)
== END ==
LOC: LAB 06:25
PROVIDERS: Family Medicine
DX: I69.351 Hemiplegia and hemiparesis following cerebral infarction affecting right dominant side (principal)

== ENCOUNTER → 2019-07-12 | Outpatient (CLI) | payer MEDICARE, OTHER ==
[2019-07-12 07:36] LABS: PROTHROMBIN TIME 25.3 SECONDS (9.0-12.0)
== END ==
LOC: LAB 06:58
PROVIDERS: Family Medicine
DX: I48.91 Unspecified atrial fibrillation (principal); Z79.01 Long term (current) use of anticoagulants

== ENCOUNTER → 2019-08-10 | Outpatient (CLI) | payer MEDICARE, OTHER ==
[2019-08-10 08:21] LABS: PROTHROMBIN TIME 26.4 SECONDS (9.0-12.0)
== END ==
LOC: LAB 05:18
PROVIDERS: Family Medicine
DX: I48.91 Unspecified atrial fibrillation (principal); Z79.01 Long term (current) use of anticoagulants

== ENCOUNTER → 2019-10-08 | Outpatient (CLI) | payer MEDICARE, OTHER | LOC: LAB 08:35 | PROVIDERS: Family Medicine | DX: I48.91 Unspecified atrial fibrillation (principal) ==

== ENCOUNTER → 2019-10-18 | Outpatient (CLI) | payer MEDICARE, OTHER ==
[2019-10-18 12:25] LABS: PROTHROMBIN TIME 25.6 SECONDS (9.0-12.0)
== END ==
LOC: LAB 11:42
PROVIDERS: Family Medicine
DX: I48.91 Unspecified atrial fibrillation (principal)

== ENCOUNTER → 2019-11-15 | Outpatient (CLI) | payer MEDICARE, OTHER ==
[2019-11-15 12:56] LABS: PROTHROMBIN TIME 28.8 SECONDS (9.0-12.0)
== END ==
LOC: LAB 11:33
PROVIDERS: Family Medicine
DX: Z51.81 Encounter for therapeutic drug level monitoring (principal); Z79.01 Long term (current) use of anticoagulants

== ENCOUNTER → 2019-12-13 | Outpatient (CLI) | payer MEDICARE, OTHER ==
[2019-12-13 11:32] LABS: PROTHROMBIN TIME 26.1 SECONDS (9.0-12.0)
== END ==
LOC: LAB 10:44
PROVIDERS: Family Medicine
DX: Z51.81 Encounter for therapeutic drug level monitoring (principal); Z79.01 Long term (current) use of anticoagulants

== ENCOUNTER → 2020-01-10 | Outpatient (CLI) | payer MEDICARE, OTHER | LOC: LAB 07:25 | PROVIDERS: Family Medicine | DX: Z79.01 Long term (current) use of anticoagulants (principal); Z51.81 Encounter for therapeutic drug level monitoring ==

== ENCOUNTER → 2020-02-04 | Outpatient (CLI) | payer MEDICARE, OTHER ==
[2020-02-04 14:30] LABS: PROTHROMBIN TIME 17.8 SECONDS (9.0-12.0)
== END ==
LOC: LAB 14:03
PROVIDERS: Family Medicine
DX: G20 Parkinson's disease (principal); Z79.01 Long term (current) use of anticoagulants

== ENCOUNTER → 2020-03-03 | Outpatient (CLI) | payer MEDICARE, OTHER ==
[2020-03-03 11:57] LABS: PROTHROMBIN TIME 20.2 SECONDS (9.0-12.0)
== END ==
LOC: LAB 11:30
PROVIDERS: Family Medicine
DX: Z51.81 Encounter for therapeutic drug level monitoring (principal); Z79.01 Long term (current) use of anticoagulants

== ENCOUNTER → 2020-04-03 | Outpatient (CLI) | payer MEDICARE, OTHER ==
[2020-04-03 12:22] LABS: PROTHROMBIN TIME 22.9 SECONDS (9.0-12.0)
== END ==
LOC: LAB 11:51
PROVIDERS: Family Medicine
DX: I49.8 Other specified cardiac arrhythmias (principal)

== ENCOUNTER → 2020-05-04 | Outpatient (CLI) | payer MEDICARE, OTHER ==
[2020-05-04 10:53] LABS: PROTHROMBIN TIME 33.5 SECONDS (9.0-12.0)
== END ==
LOC: LAB 09:22
PROVIDERS: Family Medicine
DX: I63.40 Cerebral infarction due to embolism of unspecified cerebral artery (principal)

== ENCOUNTER → 2020-05-18 | Outpatient (CLI) | payer MEDICARE, OTHER ==
[2020-05-18 11:44] LABS: PROTHROMBIN TIME 17.8 SECONDS (9.0-12.0)
== END ==
LOC: LAB 11:02
PROVIDERS: Family Medicine
DX: I63.40 Cerebral infarction due to embolism of unspecified cerebral artery (principal); Z79.01 Long term (current) use of anticoagulants

== ENCOUNTER → 2020-06-15 | Outpatient (CLI) | payer MEDICARE, OTHER ==
[2020-06-15 10:38] LABS: PROTHROMBIN TIME 25.4 SECONDS (9.0-12.0)
== END ==
LOC: LAB 09:42
PROVIDERS: Family Medicine
DX: I50.9 Heart failure, unspecified (principal)

== ENCOUNTER → 2020-07-13 | Outpatient (CLI) | payer MEDICARE, OTHER ==
[2020-07-13 10:24] LABS: PROTHROMBIN TIME 26.4 SECONDS (9.0-12.0)
== END ==
LOC: LAB 09:46
PROVIDERS: Family Medicine
DX: Z79.01 Long term (current) use of anticoagulants (principal)

== ENCOUNTER → 2020-07-17 | Outpatient (CLI) | payer MEDICARE, OTHER ==
[2020-07-17 15:10] LABS: POTASSIUM 4.4 mmol/L (3.5-5.1)
[2020-07-17 15:11] LABS: CALCIUM 8.1 mg/dL (8.3-10.5)
[2020-07-17 16:20] LABS: URINE APPEARANCE HAZY; URINE BILIRUBIN NEGATIVE (NEGATIVE); URINE BLOOD 50 ery/uL (NEGATIVE); URINE COLOR YELLOW; URINE GLUCOSE NEGATIVE (NEGATIVE); URINE KETONE NEGATIVE (NEGATIVE); URINE LEUKOCYTE ESTERASE NEGATIVE (NEGATIVE); URINE NITRATE NEGATIVE (NEGATIVE); URINE PROTEIN(semi-quant) TRACE mg/dL (NEGATIVE); URINE UROBILINOGEN NORMAL (NORMAL)
[2020-07-17 16:21] LABS: URINE MUCUS PRESENT (NOT PRESENT)
== END ==
LOC: LAB 14:55
PROVIDERS: Family Medicine
DX: J44.9 Chronic obstructive pulmonary disease, unspecified (principal)

== ENCOUNTER → 2020-07-21 | Outpatient (CLI) | payer MEDICARE, OTHER ==
[2020-07-21 13:05] LABS: PROTHROMBIN TIME 17.7 SECONDS (9.0-12.0)
[2020-07-21 17:05] LABS: EOS # 0.5 (0.04-0.40); HEMATOCRIT 43.3 % (42.0-52.0); HEMOGLOBIN 14.3 g/dL (13.5-18.0); LYMPH# 1.8 (1.50-4.00); MEAN CELL VOLUME 94 fl (78-100); MEAN CORPUSCULAR HEMOGLOBIN 31 pg (27-31); MEAN CORPUSCULAR HGB CONC 33 g/dL (33-37); MEAN PLATELET VOLUME 10.7 fl (7.4-10.4); MONO # 0.6 (0.20-0.80); PLATELET COUNT 166 K/mm3 (130-400); RED CELL DISTRIBUTION WIDTH 13.2 % (11.5-14.5); WHITE BLOOD COUNT 7.9 K/mm3 (4.8-10.8)
[2020-07-21 17:06] LABS: EOS % 5.7 % (0.0-4.0)
[2020-07-21 17:12] LABS: ALBUMIN 3.5 g/dL (3.4-4.8); POTASSIUM 4.2 mmol/L (3.5-5.1)
[2020-07-21 17:14] LABS: CALCIUM 8.3 mg/dL (8.3-10.5)
[2020-07-21 17:15] LABS: TOTAL PROTEIN 6.4 g/dL (6.2-8.1)
[2020-07-21 17:17] LABS: TOTAL BILIRUBIN 0.7 mg/dL (0.2-1.2)
[2020-07-21 17:21] LABS: MAGNESIUM 1.87 mg/dL (1.60-2.60)
== END ==
LOC: LAB 12:31
PROVIDERS: Family Medicine
DX: J44.9 Chronic obstructive pulmonary disease, unspecified (principal); F02.80 Dementia in other diseases classified elsewhere, unspecified severity, without behavioral disturbance, psychotic disturbance, mood disturbance, and anxiety; I63.40 Cerebral infarction due to embolism of unspecified cerebral artery

== ENCOUNTER → 2020-07-27 | Outpatient (CLI) | payer MEDICARE, OTHER ==
[2020-07-27 12:12] LABS: PROTHROMBIN TIME 23.5 SECONDS (9.0-12.0)
== END ==
LOC: LAB 11:42
PROVIDERS: Family Medicine
DX: I48.91 Unspecified atrial fibrillation (principal)

== ENCOUNTER → 2020-08-24 | Outpatient (CLI) | payer MEDICARE, OTHER ==
[~2020-08-24] MED LIST changes: +CLONAZEPAM0.5 M1 PO; +COLACE100 M1 PO; +KAPSPARGO SPRIN50 MG PO; +OPCON-A 0.027%-15 M1 OP; +THERA D PO; +VITAMIN C500 M7 PO; +WARFARIN SODIUM3 MG PO; +ZINC50 M3 PO
[2020-08-24 13:34] LABS: PROTHROMBIN TIME 25.7 SECONDS (9.0-12.0)
== END ==
LOC: LAB 11:43
PROVIDERS: Family Medicine
DX: I48.91 Unspecified atrial fibrillation (principal); Z79.01 Long term (current) use of anticoagulants

== ENCOUNTER → 2020-09-22 | Outpatient (CLI) | payer MEDICARE, OTHER ==
[2020-09-22 11:08] LABS: PROTHROMBIN TIME 30.3 SECONDS (9.0-12.0)
== END ==
LOC: LAB 10:30
PROVIDERS: Family Medicine
DX: I48.91 Unspecified atrial fibrillation (principal)

== ENCOUNTER → 2020-10-19 | Outpatient (CLI) | payer MEDICARE, OTHER | LOC: LAB 10:47 | PROVIDERS: Family Medicine | DX: I63.40 Cerebral infarction due to embolism of unspecified cerebral artery (principal) ==

== ENCOUNTER → 2020-11-20 | Outpatient (CLI) | payer MEDICARE, OTHER | LOC: LAB 11:54 | PROVIDERS: Family Medicine | DX: I63.40 Cerebral infarction due to embolism of unspecified cerebral artery (principal) ==

== ENCOUNTER → 2020-12-20 | Outpatient (CLI) | payer MEDICARE, OTHER ==
[2020-12-20 13:38] LABS: PROTHROMBIN TIME 23.9 SECONDS (9.0-12.0)
== END ==
LOC: LAB 13:19
PROVIDERS: Family Medicine
DX: I63.40 Cerebral infarction due to embolism of unspecified cerebral artery (principal); Z79.01 Long term (current) use of anticoagulants

== ENCOUNTER → 2020-12-27 | Outpatient (CLI) | payer MEDICARE, OTHER ==
[2020-12-27 15:03] LABS: PROTHROMBIN TIME 25.2 SECONDS (9.0-12.0)
== END ==
LOC: LAB 13:37
PROVIDERS: Family Medicine
DX: I48.91 Unspecified atrial fibrillation (principal)

== ENCOUNTER → 2021-01-24 | Outpatient (CLI) | payer MEDICARE, OTHER ==
[2021-01-24 08:06] LABS: PROTHROMBIN TIME 19.5 SECONDS (9.0-12.0)
== END ==
LOC: LAB 07:27
PROVIDERS: Family Medicine
DX: I63.40 Cerebral infarction due to embolism of unspecified cerebral artery (principal); Z79.01 Long term (current) use of anticoagulants

== ENCOUNTER → 2021-02-09 | Outpatient (CLI) | payer MEDICARE, OTHER ==
[~2021-02-09] VITALS: Wt 118.7 kg
[2021-02-09] VITALS (8 sets, daily range): BP systolic 111–141; BP diastolic 32–105
== END ==
LOC: AMSURD 16:32
DX: U07.1 COVID-19 (principal)
CPT/HCPCS: Q0244

== ENCOUNTER → 2021-02-23 | Outpatient (CLI) | payer MEDICARE | LOC: LAB 16:45 | PROVIDERS: Family Medicine | DX: I48.91 Unspecified atrial fibrillation (principal) ==

== ENCOUNTER 2021-02-27 20:34 | Emergency (ER) | payer MEDICARE, OTHER ==
[~2021-02-27 20:34] MED LIST changes: -KAPSPARGO SPRIN50 MG PO; -OPCON-A 0.027%-15 M1 OP; -THERA D PO; -VITAMIN C500 M7 PO; -WARFARIN SODIUM3 MG PO; -ZINC50 M3 PO
[2021-02-27] MEDS ORDERED: CEPACOL SORE TH MM (21:51)
[2021-02-27] MEDS ORDERED: WARFARIN SODIUM3 MG PO (21:54)
[2021-02-27] MEDS ORDERED: KAPSPARGO SPRIN50 MG PO (21:58)
[2021-02-27] MEDS ORDERED: OPCON-A 0.027%-15 M1 OP (21:59)
[2021-02-27] MEDS ORDERED: THERA D PO (22:02)
[2021-02-27] MEDS ORDERED: VITAMIN C500 M7 PO (22:02)
[2021-02-27] MEDS ORDERED: ZINC50 M3 PO (22:03)
[2021-02-27] MEDS ORDERED: CEPHALEXIN500 M1 PO (22:21)
[2021-02-27 22:25] VITALS: BP 132/95
== END 2021-02-27 22:25 | disposition home or self-care (01) ==
LOC: ED 20:34
DX: S31.31XA Laceration without foreign body of scrotum and testes, initial encounter (principal); G20 Parkinson's disease; F02.80 Dementia in other diseases classified elsewhere, unspecified severity, without behavioral disturbance, psychotic disturbance, mood disturbance, and anxiety; F41.9 Anxiety disorder, unspecified; J44.9 Chronic obstructive pulmonary disease, unspecified; I11.0 Hypertensive heart disease with heart failure; I50.9 Heart failure, unspecified; Z86.16 Personal history of COVID-19; Z79.82 Long term (current) use of aspirin; Z79.01 Long term (current) use of anticoagulants; Z79.899 Other long term (current) drug therapy; X50.0XXA Overexertion from strenuous movement or load, initial encounter
CPT/HCPCS: 90714

== ENCOUNTER → 2021-03-23 | Outpatient (CLI) | payer MEDICARE, OTHER ==
[~2021-03-23] MED LIST changes: +KAPSPARGO SPRIN50 MG PO; +OPCON-A 0.027%-15 M1 OP; +THERA D PO; +VITAMIN C500 M7 PO; +WARFARIN SODIUM3 MG PO; +ZINC50 M3 PO
[2021-03-23 13:23] LABS: PROTHROMBIN TIME 27.2 SECONDS (9.0-12.0)
== END ==
LOC: LAB 13:10
PROVIDERS: Family Medicine
DX: I48.91 Unspecified atrial fibrillation (principal)

== ENCOUNTER → 2021-08-27 | Outpatient (CLI) | payer MEDICARE, OTHER | LOC: RAD 10:15 → VAS 10:53 | DX: M79.605 Pain in left leg (principal); M79.89 Other specified soft tissue disorders ==

== ENCOUNTER → 2021-09-27 | Outpatient (CLI) | payer MEDICARE, OTHER | LOC: LAB 16:06 | DX: L08.9 Local infection of the skin and subcutaneous tissue, unspecified (principal) ==